=== PATIENT | male | born 1985 | race Caucasian/White ===

== ENCOUNTER 2018-04-27 22:36 | Inpatient (IN) | payer MEDICAID ==
[~2018-04-27] VITALS: Ht 185.4 cm; Wt 91.2 kg
[2018-04-27] MEDS ORDERED: SODIUM CHLORIDE 0.9% 1,000 ML IV ONE ×2 (23:14→23:22)
[2018-04-27] MEDS ORDERED: LORAZEPAM 2MG/ML CPJ IV ONE (23:15)
[2018-04-27] MEDS ORDERED: LORAZEPAM 2MG/ML CPJ ONE (23:22)
[2018-04-27] MEDS ORDERED: LEVETIRACETAM 500MG PREMIX 100 ML IV ONE ×2 (23:30)
[2018-04-27 23:50] LABS: BASOPHILS % 0.2 % (0.0-2.0); EOSINOPHILS % 0.4 % (0.0-5.0); HEMATOCRIT. 37.8 % (42.0-52.0); HEMOGLOBIN. 12.4 g/dL (14.0-18.0); LYMPHOCYTES % 10.4 % (20.0-50.0); MEAN CORPUSCULAR HEMOGLOBIN 29.1 pg (28.0-32.0); MEAN CORPUSCULAR VOLUME 88.4 fL (80.0-94.0); MEAN PLATELET VOLUME 8.5 fl (7.4-10.4); MONOCYTES % 8.3 % (2.0-8.0); NEUTROPHILS % 80.7 % (40.0-76.0); PLATELET 242 x1000/uL (130-400); RED BLOOD CELL COUNT 4.27 mill/uL (4.7-6.1); RED CELL DISTRIBUTION WIDTH 12.7 % (11.6-14.6)
[2018-04-27 23:55] LABS: CHLORIDE 99 mEq/L (98-107)
[2018-04-27 23:56] LABS: INR 1.1; PARTIAL THROMBOPLASTIN TIME 29.8 sec (23.4-31.0)
[2018-04-28] VITALS (11 sets, daily range): BP systolic 89–143; BP diastolic 52–88
[2018-04-28] LABS: ETHANOL BLOOD < 10 mg/dL
[2018-04-28 00:05] LABS: CREATINE KINASE 234 IU/L (39-308)
[2018-04-28] MEDS ORDERED: SODIUM CHLORIDE 0.9% 1,000 ML IV ONE (01:30)
[2018-04-28 02:36] LABS: CHLORIDE 107 mEq/L (98-107)
[2018-04-28 02:44] LABS: CREATINE KINASE 246 IU/L (39-308)
[2018-04-28] MEDS ORDERED: LORAZEPAM 2MG/ML CPJ IM PRN ×2 (04:45→07:00)
[2018-04-28] MEDS ORDERED: LORAZEPAM 2MG/ML CPJ IV PRN (07:00)
[2018-04-28] MEDS: LEVETIRACETAM 500MG TABLET PO SCH ×2 (09:03→21:10)
[2018-04-28] MEDS ORDERED: ASPI-1158 MT (09:43)
[2018-04-28] MEDS ORDERED: ALPR0.25 PO (09:46)
[2018-04-28 10:29] LABS: CHLORIDE 104 mEq/L (98-107)
[2018-04-28 10:39] LABS: BASOPHILS % 0.2 % (0.0-2.0); EOSINOPHILS % 0.1 % (0.0-5.0); HEMATOCRIT. 33.8 % (42.0-52.0); HEMOGLOBIN. 11.7 g/dL (14.0-18.0); LYMPHOCYTES % 7.7 % (20.0-50.0); MEAN CORPUSCULAR VOLUME 86.4 fL (80.0-94.0); MEAN PLATELET VOLUME 8.7 fl (7.4-10.4); MONOCYTES % 6.6 % (2.0-8.0); NEUTROPHILS % 85.4 % (40.0-76.0); PLATELET 244 x1000/uL (130-400); RED BLOOD CELL COUNT 3.91 mill/uL (4.7-6.1); RED CELL DISTRIBUTION WIDTH 12.5 % (11.6-14.6)
[2018-04-28] MEDS: ENOXAPARIN 40MG/0.4ML SYR SUBCUT SCH (10:52)
[2018-04-28] MEDS: HYDROCODONE/ACETAMINOPHEN 5/325MG TABLET PO PRN ×2 (16:02→21:10)
[2018-04-28 16:39] LABS: *AMPHETAMINES SCREEN URINE NEGATIVE (NEGATIVE)
[2018-04-28 16:41] LABS: *BARBITURATES SCREEN URINE NEGATIVE (NEGATIVE); *BENZODIAZEPINES SCREEN URINE PRESUMTIVE POSITIVE (NEGATIVE); *COCAINE SCREEN URINE NEGATIVE (NEGATIVE); CANNABINOID URINE SCREEN PRESUMTIVE POSITIVE (NEGATIVE); METHADONE URINE SCREEN PRESUMTIVE POSITIVE (NEGATIVE); OPIATES URINE SCREEN NEGATIVE (NEGATIVE); PHENCYCLIDINE URINE SCREEN NEGATIVE (NEGATIVE)
[2018-04-28] MEDS: MULTIVITAMINS,THER W-MINERALS TABLET PO SCH (16:44)
[2018-04-28] MEDS: FOLIC ACID 1MG TABLET PO SCH (16:44)
[2018-04-28] MEDS: THIAMINE HCL 100MG TABLET PO SCH (16:44)
[2018-04-28] MEDS: ALPRAZOLAM 0.25 MG TABLET PO SCH (23:00)
[2018-04-29] VITALS (10 sets, daily range): BP systolic 102–138; BP diastolic 56–87
[2018-04-29] MEDS: HYDROCODONE/ACETAMINOPHEN 5/325MG TABLET PO PRN (06:53)
[2018-04-29] MEDS: MULTIVITAMINS,THER W-MINERALS TABLET PO SCH (08:40)
[2018-04-29] MEDS: ENOXAPARIN 40MG/0.4ML SYR SUBCUT SCH (08:40)
[2018-04-29] MEDS: FOLIC ACID 1MG TABLET PO SCH (08:41)
[2018-04-29] MEDS: THIAMINE HCL 100MG TABLET PO SCH (08:41)
[2018-04-29] MEDS: LEVETIRACETAM 500MG TABLET PO SCH ×2 (08:41→21:41)
[2018-04-29 09:14] LABS: BASOPHILS % 0.4 % (0.0-2.0); EOSINOPHILS % 0.3 % (0.0-5.0); HEMATOCRIT. 36.7 % (42.0-52.0); HEMOGLOBIN. 12.4 g/dL (14.0-18.0); LYMPHOCYTES % 11.2 % (20.0-50.0); MEAN CORPUSCULAR HEMOGLOBIN 29.8 pg (28.0-32.0); MEAN CORPUSCULAR VOLUME 87.8 fL (80.0-94.0); MEAN PLATELET VOLUME 8.6 fl (7.4-10.4); NEUTROPHILS % 81.1 % (40.0-76.0); PLATELET 243 x1000/uL (130-400); RED BLOOD CELL COUNT 4.18 mill/uL (4.7-6.1); RED CELL DISTRIBUTION WIDTH 12.9 % (11.6-14.6)
[2018-04-29 09:28] LABS: CHLORIDE 104 mEq/L (98-107)
[2018-04-29] MEDS ORDERED: ACETAMINOPHEN 325MG TABLET PO PRN (10:15)
[2018-04-29] MEDS ORDERED: ALPRAZOLAM 0.25 MG TABLET PO SCH (21:00)
[2018-04-29] MEDS: ALPRAZOLAM 0.25 MG TABLET PO SCH (21:41)
[2018-04-30] VITALS (29 sets, daily range): BP systolic 90–186; BP diastolic 50–107
[2018-04-30] MEDS: HYDROCODONE/ACETAMINOPHEN 5/325MG TABLET PO PRN ×2 (04:45→16:52)
[2018-04-30] MEDS: LORAZEPAM 2MG/ML CPJ IV PRN ×2 (08:23→08:25)
[2018-04-30] MEDS ORDERED: LORAZEPAM 2MG/ML CPJ IV PRN (08:30)
[2018-04-30] MEDS: THIAMINE HCL 100MG TABLET PO SCH (09:00)
[2018-04-30] MEDS: MULTIVITAMINS,THER W-MINERALS TABLET PO SCH (09:00)
[2018-04-30] MEDS: FOLIC ACID 1MG TABLET PO SCH (09:00)
[2018-04-30] MEDS ORDERED: PHENYTOIN SODIUM 1,000 MG in SODIUM CHLORIDE 0.9% 100 ML IV SCH (10:00)
[2018-04-30] MEDS ORDERED: LEVETIRACETAM 500MG TABLET PO SCH (10:00)
[2018-04-30] MEDS ORDERED: LEVETIRACETAM 1,000 MG in SODIUM CHLORIDE 0.9% 100 ML IV NR (11:30)
[2018-04-30 12:05] LABS: BASOPHILS % 0.3 % (0.0-2.0); EOSINOPHILS % 0.1 % (0.0-5.0); HEMATOCRIT. 36.4 % (42.0-52.0); HEMOGLOBIN. 12.2 g/dL (14.0-18.0); LYMPHOCYTES % 11.5 % (20.0-50.0); MEAN CORPUSCULAR HEMOGLOBIN 29.5 pg (28.0-32.0); MEAN CORPUSCULAR VOLUME 87.9 fL (80.0-94.0); MEAN PLATELET VOLUME 8.8 fl (7.4-10.4); MONOCYTES % 8.1 % (2.0-8.0); PLATELET 254 x1000/uL (130-400); RED BLOOD CELL COUNT 4.15 mill/uL (4.7-6.1); RED CELL DISTRIBUTION WIDTH 13.1 % (11.6-14.6)
[2018-04-30 12:13] LABS: CHLORIDE 108 mEq/L (98-107)
[2018-04-30] MEDS: ENOXAPARIN 40MG/0.4ML SYR SUBCUT SCH (12:20)
[2018-04-30] MEDS ORDERED: FOLIC ACID 1 MG, THIAMINE HCL 100 MG, MVI, ADULT NO.1 10 ML in DEXT 5%/0.45% NACL 1000M... IV SCH ×4 (13:00)
[2018-04-30 13:57] LABS: BG BASE EXCESS 0.6 mmol/L (-2.0-2.0); BG CARBOXYHEMOGLOBIN 0.8 % (0.5-1.5); BG DEOXYHEMOGLOBIN 3.4 % (0.0-5.0); BG FRACTION INSPIRED OXYGEN 21; BG HCO3 ACT 24.2 mmol/L (22.0-26.0); BG METHEMOGLOBIN 0.1 % (0.0-1.5); BG OXYGEN SATURATION 96.6 % (92.0-98.5); BG OXYHEMOGLOBIN 95.7 % (94.0-97.0); BG PCO2 35.4 mmHg (35.0-45.0); BG PH 7.453 (7.350-7.450); BG PO2 85.7 mmHg (75.0-100.0); BG SAMPLE SITE LEFT RADIAL; BG TOTAL HEMOGLOBIN 12.6 g/dL (12.0-18.0); BG VENT MODE ROOM AIR
[2018-04-30 17:10] LABS: CREATINE KINASE 344 IU/L (39-308)
[2018-04-30] MEDS: PHENYTOIN SODIUM EXTENDED 100MG CAPSULE PO SCH (22:01)
[2018-04-30] MEDS: ALPRAZOLAM 0.25 MG TABLET PO SCH (22:01)
[2018-05-01] VITALS (44 sets, daily range): BP systolic 72–143; BP diastolic 29–115
[2018-05-01] MEDS: LEVETIRACETAM 1,000 MG in SODIUM CHLORIDE 0.9% 100 ML IV SCH ×3 (03:13→21:12)
[2018-05-01 04:39] LABS: BASOPHILS % 0.3 % (0.0-2.0); EOSINOPHILS % 0.5 % (0.0-5.0); HEMATOCRIT. 39.8 % (42.0-52.0); HEMOGLOBIN. 13.4 g/dL (14.0-18.0); LYMPHOCYTES % 8.7 % (20.0-50.0); MEAN CORPUSCULAR HEMOGLOBIN 29.8 pg (28.0-32.0); MEAN CORPUSCULAR VOLUME 88.3 fL (80.0-94.0); MEAN PLATELET VOLUME 8.7 fl (7.4-10.4); MONOCYTES % 9.5 % (2.0-8.0); PLATELET 264 x1000/uL (130-400); RED BLOOD CELL COUNT 4.51 mill/uL (4.7-6.1); RED CELL DISTRIBUTION WIDTH 13.4 % (11.6-14.6)
[2018-05-01 05:05] LABS: CHLORIDE 109 mEq/L (98-107)
[2018-05-01] MEDS: PHENYTOIN SODIUM EXTENDED 100MG CAPSULE PO SCH ×2 (05:18→21:14)
[2018-05-01] MEDS: DEXT 5%/0.45% NACL 1000ML 1,000 ML IV SCH ×2 (06:52→18:52)
[2018-05-01] MEDS: MULTIVITAMINS,THER W-MINERALS TABLET PO SCH (09:00)
[2018-05-01] MEDS: FOLIC ACID 1MG TABLET PO SCH (09:00)
[2018-05-01] MEDS: THIAMINE HCL 100MG TABLET PO SCH (09:00)
[2018-05-01] MEDS: ENOXAPARIN 40MG/0.4ML SYR SUBCUT SCH (10:13)
[2018-05-01] MEDS ORDERED: MORPHINE SULFATE 10 MG/ML CPJ IV PRN (11:15)
[2018-05-01] MEDS ORDERED: PHENYTOIN SODIUM 600 MG in SODIUM CHLORIDE 0.9% 100 ML IV SCH (11:30)
[2018-05-01] MEDS ORDERED: METHADONE HCL 10MG TABLET PO NR (14:00)
[2018-05-01] MEDS ORDERED: METRONIDAZOLE 500 MG PREMIX 100 ML IV SCH (16:00)
[2018-05-01] MEDS: CEFEPIME 1,000 MG in DEXTROSE 5% WATER 50 ML IV SCH (16:33)
[2018-05-01] MEDS: METRONIDAZOLE 500MG TABLET PO SCH (17:03)
[2018-05-01] MEDS: HYDROCODONE/ACETAMINOPHEN 5/325MG TABLET PO PRN (21:13)
[2018-05-01] MEDS: ALPRAZOLAM 0.25 MG TABLET PO SCH (21:14)
[2018-05-02] VITALS (44 sets, daily range): BP systolic 43–148; BP diastolic 17–89
[2018-05-02] MEDS: CEFEPIME 1,000 MG in DEXTROSE 5% WATER 50 ML IV SCH ×2 (03:00→16:06)
[2018-05-02] MEDS: DEXT 5%/0.45% NACL 1000ML 1,000 ML IV SCH ×2 (05:52→16:06)
[2018-05-02] MEDS: METRONIDAZOLE 500MG TABLET PO SCH ×2 (06:39→17:10)
[2018-05-02 06:47] LABS: CHLORIDE 106 mEq/L (98-107)
[2018-05-02 06:50] LABS: BASOPHILS % 0.5 % (0.0-2.0); EOSINOPHILS % 0.7 % (0.0-5.0); HEMATOCRIT. 35.1 % (42.0-52.0); HEMOGLOBIN. 11.9 g/dL (14.0-18.0); LYMPHOCYTES % 11.2 % (20.0-50.0); MEAN CORPUSCULAR HEMOGLOBIN 29.7 pg (28.0-32.0); MEAN PLATELET VOLUME 9.1 fl (7.4-10.4); NEUTROPHILS % 73.6 % (40.0-76.0); PLATELET 214 x1000/uL (130-400); RED BLOOD CELL COUNT 3.98 mill/uL (4.7-6.1); RED CELL DISTRIBUTION WIDTH 13.1 % (11.6-14.6)
[2018-05-02] MEDS: THIAMINE HCL 100MG TABLET PO SCH (09:11)
[2018-05-02] MEDS: FOLIC ACID 1MG TABLET PO SCH (09:11)
[2018-05-02] MEDS: MULTIVITAMINS,THER W-MINERALS TABLET PO SCH (09:11)
[2018-05-02] MEDS: LEVETIRACETAM 1,000 MG in SODIUM CHLORIDE 0.9% 100 ML IV SCH ×2 (09:12→20:51)
[2018-05-02] MEDS: ENOXAPARIN 40MG/0.4ML SYR SUBCUT SCH (09:16)
[2018-05-02] MEDS ORDERED: METHADONE HCL 10MG TABLET PO NR (14:00)
[2018-05-02] MEDS ORDERED: LORAZEPAM 2MG/ML CPJ IV PRN (16:55)
[2018-05-02] MEDS: PHENYTOIN SODIUM EXTENDED 100MG CAPSULE PO SCH (20:51)
[2018-05-02] MEDS: ALPRAZOLAM 0.25 MG TABLET PO SCH (20:52)
[2018-05-02] MEDS: HYDROCODONE/ACETAMINOPHEN 5/325MG TABLET PO PRN (22:41)
[2018-05-03] VITALS (27 sets, daily range): BP systolic 99–150; BP diastolic 48–99
[2018-05-03] MEDS: DEXT 5%/0.45% NACL 1000ML 1,000 ML IV SCH (02:25)
[2018-05-03] MEDS: CEFEPIME 1,000 MG in DEXTROSE 5% WATER 50 ML IV SCH (03:52)
[2018-05-03 05:42] LABS: HEMATOCRIT. 33.7 % (42.0-52.0); HEMOGLOBIN. 11.3 g/dL (14.0-18.0); MEAN CORPUSCULAR HEMOGLOBIN 29.4 pg (28.0-32.0); MEAN PLATELET VOLUME 9.1 fl (7.4-10.4); PLATELET 216 x1000/uL (130-400); RED BLOOD CELL COUNT 3.83 mill/uL (4.7-6.1); RED CELL DISTRIBUTION WIDTH 13.4 % (11.6-14.6)
[2018-05-03 05:47] LABS: CHLORIDE 104 mEq/L (98-107)
[2018-05-03] MEDS: METRONIDAZOLE 500MG TABLET PO SCH (06:27)
[2018-05-03 08:33] LABS: PLATELET ESTIMATE NORMAL
[2018-05-03] MEDS: THIAMINE HCL 100MG TABLET PO SCH (09:29)
[2018-05-03] MEDS: MULTIVITAMINS,THER W-MINERALS TABLET PO SCH (09:29)
[2018-05-03] MEDS: FOLIC ACID 1MG TABLET PO SCH (09:29)
[2018-05-03] MEDS: ENOXAPARIN 40MG/0.4ML SYR SUBCUT SCH (09:30)
[2018-05-03] MEDS: LEVETIRACETAM 1,000 MG in SODIUM CHLORIDE 0.9% 100 ML IV SCH (09:30)
[2018-05-03] MEDS ORDERED: POTASSIUM CHLORIDE 20MEQ TABLET SR PO NR (11:00)
[2018-05-03] MEDS: ALPRAZOLAM 0.25 MG TABLET PO SCH (15:59)
== END 2018-05-03 16:30 | disposition home or self-care (01) | DRG 53 ==
LOC: ER 22:36 → 5EST 04-28 01:11 → EDBEDREQDT 04-28 01:20 → EDBEDREQ 04-28 01:20 → EDBEDREQTM 04-28 01:20 → ENRESERV 04-28 01:22 → MICUSO 04-30 08:59
PROVIDERS: ADMIT Internal Medicine; ATTEND Internal Medicine
PROC: 4A00X4Z Measurement of Central Nervous Electrical Activity, External Approach (ICD-10-PCS; principal; 2018-04-30)
DX: G40.89 Other seizures (principal); R65.10 Systemic inflammatory response syndrome (SIRS) of non-infectious origin without acute organ dysfunction; D72.829 Elevated white blood cell count, unspecified; F12.90 Cannabis use, unspecified, uncomplicated; F17.210 Nicotine dependence, cigarettes, uncomplicated; F41.9 Anxiety disorder, unspecified; Z86.718 Personal history of other venous thrombosis and embolism; Z87.442 Personal history of urinary calculi; Z88.8 Allergy status to other drugs, medicaments and biological substances; Z79.899 Other long term (current) drug therapy
CPT/HCPCS: 36415; 36600; 70551; 71045; 73590; 80048; 80185; 80305; 80307; 80329; 82375; 82550; 82805; 83735; 85379; 92610; 93005; 93970; 96365; 97162; 97530; 99291; G0482; J0692; J1165; J1650; J1953; J2060; J2270; J3411; J3490; J7030; J7050; J7060; A4315